=== PATIENT | female | born 1995 | race Caucasian/White ===

== ENCOUNTER 2017-10-18 14:36 | Emergency (ER) | payer OTHER ==
[~2017-10-18] VITALS: Ht 160 cm; Wt 81.6 kg
[2017-10-18 14:39] VITALS: BP 128/87
--- NOTE | 2017-10-18 15:10 | NUR ---
C/O SORE THROAT X 1 WEEK. DENIES FEVER. DENIES N/V/D; SKIN IS PINK/WARM/DRY; AAOX4 WITH EVEN AND STEADY GAIT; LUNGS CLEAR BL; HR EVEN AND REGULAR; PT DENIES ANY FEVER, CP, SOB, OR COUGH AT THIS TIME; PATIENT STATES PAIN OF 5/10 AT THIS TIME; VSS; PATIENT POSITIONED FOR COMFORT; HOB ELEVATED; BEDRAILS UP X2; BED DOWN. ER MD MADE AWARE OF PT STATUS.
--- NOTE | 2017-10-18 17:09 | NUR ---
Patient being evaluated by physician at bedside.
[2017-10-18] MEDS ORDERED: KETOROLAC 60 MG/2 ML VIAL IM ONE (17:10)
[2017-10-18] MEDS ORDERED: PENICILLIN G BENZATHINE L-A 1.2 MU/2 ML SYR IM ONE (17:10)
[2017-10-18 17:45] VITALS: BP 125/85
--- NOTE | 2017-10-18 17:45 | NUR ---
Patient discharged with v/s stable. Written and verbal after care instructions given and explained. Patient alert, oriented and verbalized understanding of instructions. Ambulatory with steady gait. All questions addressed prior to discharge. ID band removed. Patient advised to follow up with PMD. Rx of PREDNISONE, MOTRIN, CIPRO given. Patient educated on indication of medication including possible reaction and side effects. Opportunity to ask questions provided and answered.
== END 2017-10-18 17:45 | disposition home or self-care (01) ==
LOC: MED 14:36
DX: J02.9 Acute pharyngitis, unspecified (principal); N39.0 Urinary tract infection, site not specified
CPT/HCPCS: 81002; 81025; 96372; 99284; J0561; J1885

== ENCOUNTER 2020-10-17 21:30 | Emergency (ER) | payer OTHER ==
[~2020-10-17] VITALS: Ht 152.4 cm; Wt 83.9 kg
[2020-10-17 21:39] VITALS: BP 121/76
--- NOTE | 2020-10-17 21:46 | NUR ---
patient ambulated to the bathroom for urine collection
--- NOTE | 2020-10-17 21:51 | NUR ---
patient to lobby
[2020-10-17] MEDS ORDERED: CEPH-588 PO (22:25)
[2020-10-17] MEDS ORDERED: PHEN-1877 PO (22:25)
[2020-10-17 22:48] VITALS: BP 121/76
--- NOTE | 2020-10-17 22:48 | NUR ---
Patient discharged with v/s stable. Written and verbal after care instructions given and explained. Patient alert, oriented and verbalized understanding of instructions. Ambulatory with steady gait. All questions addressed prior to discharge. ID band removed. Patient advised to follow up with PMD. Rx of KEFLEX AND PYRIDIUM given. Patient educated on indication of medication including possible reaction and side effects. Opportunity to ask questions provided and answered.
== END 2020-10-17 22:28 | disposition home or self-care (01) ==
LOC: MED 21:30
DX: R30.0 Dysuria (principal); R50.9 Fever, unspecified; M54.5 Low back pain; Z88.5 Allergy status to narcotic agent; Z79.899 Other long term (current) drug therapy
CPT/HCPCS: 99283

== ENCOUNTER 2020-11-12 23:24 | Emergency (ER) | payer OTHER ==
[~2020-11-12] VITALS: Ht 152.4 cm; Wt 83.9 kg
[~2020-11-12 23:24] MED LIST: CEPH-588 PO; PHEN-1877 PO
[2020-11-13] VITALS: BP 113/75
--- NOTE | 2020-11-13 00:03 | NUR ---
TO LOBBY A/W BED AMBULATORY
[2020-11-13] MEDS ORDERED: SULF-58 PO (05:13)
--- NOTE | 2020-11-13 05:59 | NUR ---
PT LEFT WITHOUT DISCHARGE PAPERWORK. PRESCRIPTION WAS SENT TO PREFERRED PHARM ON RECORD.
--- NOTE | 2020-11-13 06:01 | NUR ---
PATIENT ELOPED FROM FACILITY. DISCHARGE INSTRUCTIONS NOT GIVEN TO PATIENT. DR. GUERRA NOTIFIED.
== END 2020-11-13 06:01 | disposition left against medical advice (07) ==
LOC: MED 23:24
DX: N39.0 Urinary tract infection, site not specified (principal); Z88.5 Allergy status to narcotic agent; Z79.899 Other long term (current) drug therapy
CPT/HCPCS: 81002; 81025; 87086; 99282; 99283

== ENCOUNTER 2021-12-24 23:17 | Emergency (ER) | payer OTHER, MEDICAID ==
[~2021-12-24] VITALS: Ht 152.4 cm; Wt 98.6 kg
[~2021-12-24 23:17] MED LIST changes: +SULF-58 PO
[2021-12-24 23:50] VITALS: BP 123/90
[2021-12-24] MEDS ORDERED: PREN-234 (23:59)
--- NOTE | 2021-12-25 | NUR ---
PATIENT PROVIDED WITH A URINE COLLECTION CUP AND THEN AMBULATED BACK TO [facility] IN STABLE CONDITION
--- NOTE | 2021-12-25 02:02 | NUR ---
PT TO BED 6
--- NOTE | 2021-12-25 02:07 | NUR ---
Patient lying in bed, A/Ox4, chest rise and fall symmetrical, no s/s of distress.
--- NOTE | 2021-12-25 02:11 | NUR ---
DR CARVALHO AT BEDSIDE EXAMINING PT
--- NOTE | 2021-12-25 03:11 | NUR ---
Patient lying in bed, A/Ox4, chest rise and fall symmetrical, no s/s of distress.
[2021-12-25 03:22] LABS: APPEARANCE,URINE CLEAR (CLEAR); BILIRUBIN,URINE NEGATIVE (NEGATIVE); BLOOD, URINE NEGATIVE (NEGATIVE); COLOR,URINE YELLOW (YELLOW); LEUKOCYTE ESTERASE ,URINE NEGATIVE (NEGATIVE); NITRITE, URINE NEGATIVE (NEGATIVE); PH,URINE 6.5 (5.0-9.0); UGLUCOSE NEGATIVE (NEGATIVE)
[2021-12-25] MEDS ORDERED: HYD1C TP (03:36)
[2021-12-25 03:45] VITALS: BP 124/71
== END 2021-12-25 03:42 | disposition home or self-care (01) ==
LOC: MED 23:17
DX: O99.711 Diseases of the skin and subcutaneous tissue complicating pregnancy, first trimester (principal); L25.9 Unspecified contact dermatitis, unspecified cause; Z3A.01 Less than 8 weeks gestation of pregnancy; Z88.5 Allergy status to narcotic agent; Z79.899 Other long term (current) drug therapy
CPT/HCPCS: 81003; 81025; 99283

== ENCOUNTER 2022-01-18 18:56 | Emergency (ER) | payer MEDICAID, OTHER ==
[~2022-01-18 18:56] MED LIST changes: -CEPH-588 PO; +HYD1C TP; -PHEN-1877 PO; +PREN-234; -SULF-58 PO
--- NOTE | 2022-01-18 20:39 | NUR ---
CALLED TO TRIAGE X 3 1999, 2014, 2029. NO ANSWER PT LWBS
== END 2022-01-18 20:39 | disposition left against medical advice (07) ==
LOC: MED 18:56
DX: M54.50 Low back pain, unspecified (principal); Z53.21 Procedure and treatment not carried out due to patient leaving prior to being seen by health care provider